=== PATIENT | male | born 1990 | race Caucasian/White ===

== ENCOUNTER 2023-12-24 02:17 | Emergency (ER) | payer BC, SELFPAY ==
--- NOTE | 2023-12-24 02:25 | ED.GENMED ---
History of Present Illness
<Surya Veras DO - Last Filed: 12/24/23 06:31>
General
Chief Complaint: Change Level of Consciousness
Source: patient
Exam Limitations: clinical condition
Time Seen by Provider: 12/24/23 02:19
Nursing documentation reviewed up to this point in time: agreed with
History of Present Illness
History of Present Illness:
33-year-old male dropped off by significant other for evaluation. Was walking into the emergency department and fell into the threshold. Did not hit his head during this fall. Patient states that he was originally coming to the emergency
department because he tripped over his cat and fell straight head and face on the ground. History is limited at this time. Patient admits to being diabetic. [id number] glucose was normal. Patient protecting his airway. Stroke alert called.
Dr. Jose A Benjamin called back immediately and advised that we do CT angio of the head and neck, and CT head. Patient straight to CAT scan.
Phy Exam
<Surya Veras DO - Last Filed: 12/24/23 06:31>
General Physical Exam
General Presentation: well appearing and no apparent distress
General Skin: warm and dry
General Habitus: normal
General Mental: alert
General Hydration: appears well hydrated
ENT Exam
ENT Exam: EOMI, pharynx normal, neck supple and normocephalic
Additional ENT: No septal hematoma
Eye Exam
Eye Exam: PERRL, cornea clear and conjunctiva normal
Cardiovascular Exam
Cardiovascular Exam: regular rate/rhythm, no edema, no murmur and normal peripheral pulses
Pulmonary Exam
Pulmonary Exam: lungs clear, no respiratory distress, no rales, no crackles, no rhonchi, no stridor, no wheezing and no cough
Gastrointestinal Exam
Gastrointestinal Exam: normal bowel sounds, non tender, soft, no organomegaly, no pulsatile mass and non distended
Neurological Exam
Neurological Exam: alert, oriented x3, no motor deficits and speech normal
Musculoskeletal Exam
Musculoskeletal Exam: full ROM and no edema
Skin Exam
Skin Exam: normal color, warm/dry, no rash and no petechia
Psychiatric Exam
Psychiatric Exam: normal mood/affect
Course
<Surya Veras, DO - Last Filed: 12/24/23 06:31>
Orders/Labs/Results
Orders:
Orders
12/24/23 02:19
CT Head & Neck Angio W/wo IV Urgent
Comment:
Reason For Exam: collapse with head injury
CT Head W/o Cont STROKE ALERT Urgent
Comment:
Reason For Exam: collapse with head injury
Bedside Glucose- Treatment ONCE
12/24/23 02:20
Electrocardiogram (*1) Stat
Reason for Study: Other
Other Reason for Exam: neuro symptoms
EKG- Treatment ONCE
12/24/23 02:23
Acetaminophen Urgent
Alcohol Urgent
Complete Blood Count/With Diff Urgent
Comprehensive Metabolic Panel Urgent
Erythrocyte Sed Rate Urgent
PTT Urgent
Prothrombin Time Urgent
Salicylate Urgent
12/24/23 02:58
Acetaminophen [Tylenol] 650 mg .ROUTE .STK-MED ONE
12/24/23 02:59
Acetaminophen [Tylenol] 650 mg PO NOW STA
12/24/23 05:29
Urinalysis Reflex To Culture Urgent
Date Specimen was Collected: 12/24/23
Time Specimen was Collected: 05:28
Urine Drug Abuse Screen Urgent
Date Specimen was Collected: 12/24/23
Time Specimen was Collected: 05:28
Abnormal Lab Results
12/24/23
02:23
WBC 11.1 H 10^3/uL
(4.8-10.8)
RBC 6.16 H 10^6/uL
(4.70-6.10)
MCV 72.1 L fL
(80.0-94.0)
MCH 23.7 L pg
(27.0-31.0)
MCHC 32.9 L g/dL
(33.0-37.0)
RDW 15.4 H %
(11.5-14.5)
Abs Immat Gran (auto) 0.2 H 10^3/uL
(0-0.05)
Absolute Lymphs (auto) 4.9 H 10^3/uL
(1.2-3.4)
Absolute Monos (auto) 1.1 H 10^3/uL
(0.1-0.6)
Immature Gran % 1.9 H %
(0-0.5)
Neutrophils % 40.1 L %
(42.2-75.2)
Monocytes % 10.1 H %
(1.7-9.3)
BUN 22 H mg/dl
(9-20)
Glucose 127 H mg/dl
(70-99)
ALT 121 H U/L
(0-50)
Salicylates < 1.0 L mg/dl
(2.0-20.0)
Acetaminophen < 10 L ug/ml
(10-30)
12/24/23 02:23
12/24/23 02:23
Vital Signs
Initial and Last Documented VS:
Initial Vital Signs
BP
154/91
12/24/23 02:37
Last Documented Vital Signs
Temp Pulse Resp BP Pulse Ox
97.8 F 75 11 126/74 97
12/24/23 02:48 12/24/23 05:30 12/24/23 05:30 12/24/23 05:00 12/24/23 05:30
<MADELINE Ryan - Last Filed: 12/31/23 22:37>
Orders/Labs/Results
Orders:
Orders
12/24/23 02:19
CT Head & Neck Angio W/wo IV Urgent
Comment:
Reason For Exam: collapse with head injury
CT Head W/o Cont STROKE ALERT Urgent
Comment:
Reason For Exam: collapse with head injury
Bedside Glucose- Treatment ONCE
12/24/23 02:20
Electrocardiogram (*1) Stat
Reason for Study: Other
Other Reason for Exam: neuro symptoms
EKG- Treatment ONCE
12/24/23 02:23
Acetaminophen Urgent
Alcohol Urgent
Complete Blood Count/With Diff Urgent
Comprehensive Metabolic Panel Urgent
Erythrocyte Sed Rate Urgent
PTT Urgent
Prothrombin Time Urgent
Salicylate Urgent
12/24/23 02:58
Acetaminophen [Tylenol] 650 mg .ROUTE .STK-MED ONE
12/24/23 02:59
Acetaminophen [Tylenol] 650 mg PO NOW STA
12/24/23 05:29
Urinalysis Reflex To Culture Urgent
Date Specimen was Collected: 12/24/23
Time Specimen was Collected: 05:28
Urine Drug Abuse Screen Urgent
Date Specimen was Collected: 12/24/23
Time Specimen was Collected: 05:28
Abnormal Lab Results
12/24/23
02:23
WBC 11.1 H 10^3/uL
(4.8-10.8)
RBC 6.16 H 10^6/uL
(4.70-6.10)
MCV 72.1 L fL
(80.0-94.0)
MCH 23.7 L pg
(27.0-31.0)
MCHC 32.9 L g/dL
(33.0-37.0)
RDW 15.4 H %
(11.5-14.5)
Abs Immat Gran (auto) 0.2 H 10^3/uL
(0-0.05)
Absolute Lymphs (auto) 4.9 H 10^3/uL
(1.2-3.4)
Absolute Monos (auto) 1.1 H 10^3/uL
(0.1-0.6)
Immature Gran % 1.9 H %
(0-0.5)
Neutrophils % 40.1 L %
(42.2-75.2)
Monocytes % 10.1 H %
(1.7-9.3)
BUN 22 H mg/dl
(9-20)
Glucose 127 H mg/dl
(70-99)
ALT 121 H U/L
(0-50)
Salicylates < 1.0 L mg/dl
(2.0-20.0)
Acetaminophen < 10 L ug/ml
(10-30)
12/24/23 02:23
12/24/23 02:23
Vital Signs
Initial and Last Documented VS:
Initial Vital Signs
BP
154/91
12/24/23 02:37
Last Documented Vital Signs
Temp Pulse Resp BP Pulse Ox
97.8 F 75 11 126/74 97
12/24/23 02:48 12/24/23 05:30 12/24/23 05:30 12/24/23 05:00 12/24/23 05:30
<MADELINE Ryan - Last Filed: 12/31/23 22:37>
*Critical Care Note
Total Time (30-74mins, 75-104mins- exclusive of procedures): Not Applicable
<Surya Veras DO - Last Filed: 12/24/23 06:31>
Update Note
Update Note:
Comparison July 31, [address]23
CT head without contrast
CTA head and neck with IV contrast
IMPRESSION:
Non-contrast Head:
No acute intracranial abnormality. No acute territorial infarct, hemorrhage, mass effect, or midline shift. Retrocerebellar arachnoid cyst.
CTA Neck:
No occlusion, stenosis, or dissection.
CTA Head:
The [place] of [place] is patent without aneurysm, stenosis, or occlusion.
12/24/2023 0601 AM: Patient was able ambulate around the department with no apparent distress. Patient will be will be discharged to home. He is being discharged in much improved condition. Patient has no complaints at this time. He is
neurologically intact.
ED Attending Note
<Surya Veras DO - Last Filed: 12/24/23 06:31>
ED Attending Note
Patient seen and examined by attending physician: Yes
-
Portions of this chart may have been created with voice recognition software.� Occasional wrong word or��sound alike� substitutions may have occurred due to the inherent limitations of voice recognition software.
Discharge Plan
Departure
Patient Disposition: Home (Routine Discharge)
Date of Disposition: 12/24/23
Time of Disposition: 06:18
Patient with high blood pressure during this ER visit?: Yes
Condition: Good
Covid-19: Suspected COVID-19
Discharge Problem:
Nasal pain, Fall against object, Contusion of nose
Discharge Problem:
(Ruled Out): Fall
Prescriptions:
No Action
metformin 500 mg Tablet
500 mg PO BID@0800,1700 Qty: 60 0RF
famotidine 20 mg Tablet
20 mg PO BID Qty: 0 0RF
Referrals:
[facility] [Outside]
[facility] [Outside]
UNKNOWN - PT NOT,INTERVIEWE [Family Provider] -
Activity Restrictions/Additional Instructions:
It was a pleasure meeting you and taking part in your care. We hope for your continued healing and wellness.
Please read discharge instructions in their entirety. However, they are for general education and may not describe your exact diagnosis at discharge. Information on your ER visit and medical conditions were discussed with you along with appropriate
follow up information...
If indicated, please take your medications as instructed and indicated on discharge paperwork.
Please schedule a follow up appointment as directed. Call to schedule an appointment
Please return to the emergency department with ANY change in, persisting, or worsening of symptoms. If any of your symptoms do not improve, or persist, or become more severe within 6-12 hours, please return to the emergency department for further
care.
Please return to the emergency department if you develop a headache, neck pain/stiffness, fever greater than 100.4F, chest pain, shortness of breath, persistent nausea, vomiting, slurred speech, difficulty walking, numbness/tingling, weakness, signs
of infection or any other symptoms that are worrisome to you.
If you have any questions or concerns please do not hesitate to call the Hospital at or E-mail me directly at [email or web address]
Interventions
Interventions:
*Risk Screen - Suicide Last Done: 12/24/23 02:38
*General Assessment Last Done: 12/24/23 02:37
*Neglect/Abuse Screening Last Done: 12/24/23 02:38
ED- Fall Risk Assessment Last Done: 12/24/23 02:38
*ED COVID-19 Vaccine History Last Done: 12/24/23 02:37
*Nursing Disposition Last Done: 12/24/23 06:52
ED- Cardiac Assessment Last Done: 12/24/23 02:38
ED- Neurological Assessment Last Done: 12/24/23 02:38
ED-Psychological Assessment Last Done: 12/24/23 02:38
ED- Pulmonary Assessment Last Done: 12/24/23 02:38
Discharge Date and Time
Discharge Date/Time: 12/24/23 06:52
Print Language: GUYANESE
[2023-12-24 02:30] LABS: % Basophils 0.8 % (0-2); % Eosinophils 2.9 % (0-6); % Immature Granulocytes 1.9 % (0-0.5); % Lymphocytes 44.2 % (20.5-51.1); % Monocytes 10.1 % (1.7-9.3); % Neutrophils 40.1 % (42.2-75.2); Absolute Basophils 0.1 10^3/uL (0-0.2); Absolute Eosinophils 0.3 10^3/uL (0-0.7); Absolute Immature Granulocytes 0.2 10^3/uL (0-0.05); Absolute Lymphocytes 4.9 10^3/uL (1.2-3.4); Absolute Monocytes 1.1 10^3/uL (0.1-0.6); Absolute Neutrophils 4.5 10^3/uL (1.4-6.5); Hematocrit 44.4 % (39.0-52.0); Hemoglobin 14.6 g/dL (13.0-18.0); Mean Corp Hgb Conc. 32.9 g/dL (33.0-37.0); Mean Corpuscular Hgb 23.7 pg (27.0-31.0); Mean Corpuscular Volume 72.1 fL (80.0-94.0); Mean Platelet Volume 9.2 fL (7.4-10.4); Nucleated Red Blood Cells % 0 % (-); Platelet Count 314 10^3/uL (130-400); Red Blood Cell Count 6.16 10^6/uL (4.70-6.10); Red Cell Dist. Width 15.4 % (11.5-14.5); White Blood Cell Count 11.1 10^3/uL (4.8-10.8)
[2023-12-24 02:36] VITALS: BMI 39.3
[2023-12-24 02:37] VITALS: BP 154/91
[2023-12-24 02:41] LABS: APTT 28.6 Sec (23.4-35.0); INR 0.99; PT 13.1 Sec (11.4-14.6)
[2023-12-24 02:53] LABS: ALT (SGPT) 121 U/L (0-50); AST (SGOT) 51 U/L (17-59); Albumin 4.6 g/dl (3.5-5.0); Alkaline Phosphatase 88 U/L (38-126); Blood Urea Nitrogen 22 mg/dl (9-20); Calcium 9.9 mg/dl (8.4-10.2); Carbon Dioxide 27 mmol/L (22-30); Chloride 103 mmol/L (98-107); Estimated Creatinine Clearance > 125 ml/min; Glucose 127 mg/dl (70-99); Potassium 4.3 mmol/L (3.5-5.1); Salicylate < 1.0 mg/dl (2.0-20.0); Total Bilirubin 0.4 mg/dl (0.2-1.3); Total Protein 7.5 g/dl (6.3-8.2); eGFR > 60.00
[2023-12-24 02:56] LABS: Erythrocyte Sed Rate 8 mm/hour (0-20)
[2023-12-24 03:00] VITALS: BP 142/97
[2023-12-24] MEDS: TYLENOL 650 MG PO (03:00)
[2023-12-24 03:07] LABS: Alcohol None Detected
[2023-12-24 03:15] LABS: Acetaminophen < 10 ug/ml (10-30); Sodium 137 mmol/L (135-145)
[2023-12-24 04:00] VITALS: BP 114/62
[2023-12-24 05:00] VITALS: BP 126/74
[2023-12-24 05:43] LABS: Urine Albumin Negative (Neg - Trace); Urine Bilirubin Negative (Negative); Urine Character Clear (Clear); Urine Color Yellow; Urine Glucose Negative (Negative); Urine Ketone Negative (Negative); Urine Leukocyte Negative (Negative); Urine Nitrite Negative (Negative); Urine Occult Blood Negative (Negative); Urine Specific Gravity 1.015 (<1.030); Urine Urobilinogen Negative (Neg - 1+)
[2023-12-24 05:50] LABS: Amphetamines Negative (Negative); Barbiturates Negative (Negative); Benzodiazepines Negative (Negative); Buprenorphine Negative (Negative); Cocaine Negative (Negative); Marijuana Negative (Negative); Methadone Negative (Negative); Methamphetamines Negative (Negative); Opiates Negative (Negative); Phencyclidine Negative (Negative); Tricyclic Antidepressants Negative (Negative)
== END 2023-12-24 06:52 | disposition home or self-care (01) ==
LOC: EMR 02:17
PROVIDERS: EMERGENCY PHYSICIAN Student in an Organized Health Care Education/Training Program
DX: S00.33XA Contusion of nose, initial encounter (principal); W19.XXXA Unspecified fall, initial encounter; R03.0 Elevated blood-pressure reading, without diagnosis of hypertension
CPT/HCPCS: 99285; 70450; 70496; 70498; 80053; 80143; 80179; 80306; 81003; 82077; 85025; 85610; 85652; 85730; 93005; Q9967

== ENCOUNTER 2024-06-25 03:10 | Emergency (ER) | payer BC, SELFPAY ==
[2024-06-25 03:12] VITALS: BP 160/102
--- NOTE | 2024-06-25 05:18 | ED.GENMED ---
History of Present Illness
<MADELINE Beth - Last Filed: 06/25/24 05:59>
General
Chief Complaint: Skin Problem
Source: patient
Exam Limitations: none
Time Seen by Provider: 06/25/24 05:09
Nursing documentation reviewed up to this point in time: agreed with
History of Present Illness
History of Present Illness:
Patient is a 33yo M w/ PMH of DM who presents to ED w/ pain & swelling behind R ear into neck & jaw x 3 days. Reports it has been on/off. Medication (unknown NSAID) relieves symptoms but they come back once med wears off. States he cannot fully open
or close mouth due to pain. Also hurts to move neck bu neck not in pain currently. Admits to R ear fullness. Denies fever, chills, PAGAN, decreased hearing, congestion, rhinorrhea, cough, or ear discharge. Took an old dose of penicillin. Denies any
recent trauma to ear, head, face.
Review of Systems
<MADELINE Beth - Last Filed: 06/25/24 05:59>
Review of Systems
Constitutional: Denies fever, fatigue or chills
EENT: Denies sore throat or runny nose
Respiratory: Denies cough or trouble breathing
Cardiac: Denies chest pain or palpitations
ABD/GI: Denies abdominal pain, nausea, vomiting, diarrhea or constipated
: Denies dysuria
Musculoskeletal: Reports edema and neck pain; Denies muscle pain
Skin: Denies itching or rash
Neurological: Denies dizzy or headache
Hematologic/Lymphatic: Reports swollen glands
Phy Exam
<MADELINE Beth - Last Filed: 06/25/24 05:59>
General Physical Exam
General Presentation: severe distress
General age: appears stated age
General Skin: warm and dry
General Habitus: obese
General Mental: tearful
ENT Exam
ENT Exam: TM's normal, pharynx normal, neck supple, normocephalic and other (some swelling of R ear canal; swelling of R submandibular region )
Cardiovascular Exam
Cardiovascular Exam: regular rate/rhythm, no edema, no gallop and no murmur
Pulmonary Exam
Pulmonary Exam: lungs clear, no respiratory distress, no rales, no crackles, no rhonchi and no wheezing
Gastrointestinal Exam
Gastrointestinal Exam: normal bowel sounds, non tender, soft, no organomegaly and non distended
Neurological Exam
Neurological Exam: alert, oriented x3 and speech normal
Course
<MADELINE Beth - Last Filed: 06/25/24 05:59>
Orders/Labs/Results
Orders:
Orders
06/25/24 05:28
Amoxicillin 875 mg/Clav 125 mg [Augmentin 875 mg/125 mg] 1 tablet PO NOW STA
Ketorolac [Toradol] 60 mg IM NOW STA
Neomycin/Polymyxin/Hc [Cortisporin Otic Suspension] See Dose Instructions OTIC NOW STA
Vital Signs
Initial and Last Documented VS:
Initial Vital Signs
Temp Pulse Resp BP Pulse Ox
97.7 F 78 22 160/102 98
06/25/24 03:12 06/25/24 03:12 06/25/24 03:12 06/25/24 03:12 06/25/24 03:12
Last Documented Vital Signs
Temp Pulse Resp BP Pulse Ox
97.7 F 78 22 160/102 98
06/25/24 03:12 06/25/24 03:12 06/25/24 03:12 06/25/24 03:12 06/25/24 03:12
<Ammy Melgoza DO - Last Filed: 06/25/24 05:39>
Orders/Labs/Results
Orders:
Orders
06/25/24 05:28
Amoxicillin 875 mg/Clav 125 mg [Augmentin 875 mg/125 mg] 1 tablet PO NOW STA
Ketorolac [Toradol] 60 mg IM NOW STA
Neomycin/Polymyxin/Hc [Cortisporin Otic Suspension] See Dose Instructions OTIC NOW STA
Vital Signs
Initial and Last Documented VS:
Initial Vital Signs
Temp Pulse Resp BP Pulse Ox
97.7 F 78 22 160/102 98
06/25/24 03:12 06/25/24 03:12 06/25/24 03:12 06/25/24 03:12 06/25/24 03:12
Last Documented Vital Signs
Temp Pulse Resp BP Pulse Ox
97.7 F 78 22 160/102 98
06/25/24 03:12 06/25/24 03:12 06/25/24 03:12 06/25/24 03:12 06/25/24 03:12
<Ammy Melgoza DO - Last Filed: 06/25/24 05:39>
*Pulse Oximetry
Patient hypoxic: no
*Critical Care Note
Total Time (30-74mins, 75-104mins- exclusive of procedures): Not Applicable
ED Attending Note
<MADELINE Beth - Last Filed: 06/25/24 05:59>
-
Portions of this chart may have been created with voice recognition software.� Occasional wrong word or��sound alike� substitutions may have occurred due to the inherent limitations of voice recognition software.
<Ammy Melgoza DO - Last Filed: 06/25/24 05:39>
ED Attending Note
Patient seen and examined by attending physician: Yes
I performed the substantive portion of visit, reviewed & personally made and approve the management plan that is documented in note by myself or CONSTANTIN.: Yes
ED Attending Note:
Is a 33-year-old gentleman with history of dto-vvdvgkj-qjuloztoe diabetes, reports well-controlled with metformin. He presents with 3 to 4-day history of right posterior jaw, inferior ear pain that has been persistent, temporized with ibuprofen and
temporized with an old prescription of penicillin. Pain is worse with opening his mouth, worse with chewing with occasional episodes of significant swelling right posterior jaw region while eating. He has not had a fever nor chills, no sore
throat, no difficulty swallowing, no headache. Pain is worsened tonight along with increased pain to his right ear. He has been attempting to clean his ears, flushes ears thinking that this was an issue and believes he may have made matters worse.
No drainage from his ears, no bleeding. No muffling nor decreased hearing.
GENERAL: 33-year-old obese gentleman appears his stated age, awake and alert, pleasant, appears in no acute distress. Afebrile. Moderately hypertensive.
EYE: pupils equal and reactive. anicteric
NECK: Supple, no posterior tenderness. No meningismus, no significant adenopathy.
ENT: posterior pharynx is clear, oral mucosa is moist. Teeth are intact and nontender. No TMJ tenderness. There is moderate tenderness along a mildly to moderately boggy right parotid gland, moderate right ear tenderness with tugging on the ear.
Right external ear canal has mild whitish debris, mildly stenosed. TM is visible and is clear. Left TM and canal are clear. Nares are patent without rhinorrhea.
CARDIAC: Regular rate and rhythm. no murmur.
LUNGS: Clear breath sounds bilaterally, no acute respiratory distress, no wheezes/rales/rhonchi
ABDOMEN: Soft, nondistended, without focal tenderness
NEUROLOGICAL: Alert and oriented x3, no focal neuro deficits. Gait is viera and steady.
SKIN: Warm and dry, normal color, skin intact. No rash.
MUSCULOSKELETAL: No C/C/E. peripheral pulses are full and equal b/l. No palpable tenderness.
PSYCH: Normal and appropriate interaction
History and exam concerning for right otitis externa as well as right parotitis versus local adenitis.
Will initiate a course of Augmentin, continue ibuprofen and will add Cortisporin otic to right ear external otitis.
Recommend prompt follow-up with PCP and will refer to ENT as well especially if right parotid pain/inflammation persists.
Discharge Plan
Departure
Patient Disposition: Home (Routine Discharge)
Date of Disposition: 06/25/24
Time of Disposition: 05:35
Patient with high blood pressure during this ER visit?: Yes
Condition: Good
Discharge Problem:
Otitis externa of right ear, right parotidis
Instructions: Outer Ear Infection ED, Parotid Gland Infection
Prescriptions:
New
amoxicillin-pot clavulanate 875-125 mg tablet
1 tab PO BID Qty: 20 0RF
ibuprofen 800 mg tablet
800 mg PO QIDPRN PRN (Reason: pain, fever) Qty: 30 0RF
Cortisporin-TC 3.3-3-10-0.5 mg/mL drops,suspension
4 drp otic (ear) QID Qty: 10 0RF
No Action
metformin 500 mg Tablet
500 mg PO BID@0800,1700 Qty: 60 0RF
famotidine 20 mg Tablet
20 mg PO BID Qty: 0 0RF
Referrals:
NONE,* [Family Provider] - Call in 1-3 days for appt
Constantine Le MD [Active] - Call in 1-3 days for appt
Interventions
Interventions:
*Risk Screen - Suicide Last Done: 06/25/24 03:12
*General Assessment Last Done: 06/25/24 03:36
*Neglect/Abuse Screening Last Done: 06/25/24 03:12
ED- Fall Risk Assessment Last Done: 06/25/24 03:36
*ED COVID-19 Vaccine History Last Done: 06/25/24 03:36
Discharge Date and Time
Print Language: BELIZEAN
[2024-06-25] MEDS: AUGMENTIN 875 MG/125 MG 1 TABLET PO (05:42)
[2024-06-25] MEDS: TORADOL 60 MG IM (05:44)
[2024-06-25] MEDS: CORTISPORIN OTIC SUSPENSION 4 DROP OTIC (05:44)
[2024-06-25 06:00] VITALS: BP 107/58
== END 2024-06-25 06:00 | disposition home or self-care (01) ==
LOC: EMR 03:10
PROVIDERS: EMERGENCY PHYSICIAN Emergency Medicine
DX: H60.91 Unspecified otitis externa, right ear (principal); K11.20 Sialoadenitis, unspecified; E11.9 Type 2 diabetes mellitus without complications
CPT/HCPCS: 96372; 99284

== ENCOUNTER 2025-03-18 05:49 | Emergency (ER) | payer BC, SELFPAY ==
[2025-03-18 05:55] VITALS: BP 144/92
--- NOTE | 2025-03-18 07:25 | ED.GENMED ---
History of Present Illness
General
Chief Complaint: Musculo-Skeletal Complaint
Source: patient
Time Seen by Provider: 03/18/25 07:14
History of Present Illness
History of Present Illness:
34-year-old male presents to the emergency room complaining of right shoulder pain. Patient began having some right shoulder pain a few days ago after moving some furniture. The pain was moderate but seem to get better. He went on a fishing trip
yesterday and after returning noted the right shoulder pain to be much more significant. Patient now has significant pain with minimal movement of the right shoulder. In fact he is tearful with my exam. Patient is left-hand dominant.
Phy Exam
Physical Exam
Physical Exam:
General: Awake, Alert, Oriented X3. Appears to be in significant right shoulder pain with movement
Vitals: unremarkable
Head: Atraumatic
Eyes: Pupils equal, EOMI
Throat: Airway intact, no exudates
Neck: Trachea midline
Lungs: Clear and equal b/l
Heart: Regular rate, no murmurs
Neuro: Nonfocal
Skin: Warm, dry, no rash
Extremities: pulses equal b/l, no edema. No apparent erythema or swelling noted right shoulder. Patient indicates pain with range of motion particularly in the anterior and lateral humeral head. With palpation I am able to isolate significant
tenderness over what appears to be at the bicep tendon insertion.
Course
Orders/Labs/Results
Orders:
Orders
03/18/25 05:58
CR Humerus - Right Min 2 View* Urgent
Comment:
Reason For Exam: pain, trouble lifting
03/18/25 07:21
Acetaminophen [Tylenol] 1,000 mg PO NOW STA
Ketorolac [Toradol] 30 mg IM NOW STA
Vital Signs
Initial and Last Documented VS:
Initial Vital Signs
Temp Pulse Resp BP Pulse Ox
97.5 F 72 18 144/92 98
03/18/25 05:55 03/18/25 05:55 03/18/25 05:55 03/18/25 05:55 03/18/25 05:55
Last Documented Vital Signs
Temp Pulse Resp BP Pulse Ox
97.5 F 72 18 144/92 98
03/18/25 05:55 03/18/25 05:55 03/18/25 05:55 03/18/25 05:55 03/18/25 07:28
MDM/Problems Addressed
Differential Diagnosis Includes:
Tendinitis, bicep tear, other rotator cuff tendinitis
MDM/Problems Addressed:
Patient presents with pain in the right shoulder and upper arm. Physical exam consistent with tendinitis. X-ray shows no acute abnormality. Will treat with NSAIDs, Ortho follow-up. Sling given to use when he is walking just to add some support
but patient instructed not to use it more than occasionally.
*Pulse Oximetry
SaO2: 98
Oxygen Mode of Delivery: Room air
Patient hypoxic: no
*Critical Care Note
Total Time (30-74mins, 75-104mins- exclusive of procedures): Not Applicable
ED Attending Note
-
Portions of this chart may have been created with voice recognition software.� Occasional wrong word or��sound alike� substitutions may have occurred due to the inherent limitations of voice recognition software.
Discharge Plan
Departure
Patient Disposition: Home (Routine Discharge)
Date of Disposition: 03/18/25
Time of Disposition: 08:07
Patient with high blood pressure during this ER visit?: Yes
Condition: Good
Discharge Problem:
Tendonitis of shoulder, right
Instructions: Biceps tendinopathy
Prescriptions:
No Action
metformin 500 mg Tablet
500 mg PO BID@0800,1700 Qty: 60 0RF
famotidine 20 mg Tablet
20 mg PO BID Qty: 0 0RF
amoxicillin-pot clavulanate 875-125 mg tablet
1 tab PO BID Qty: 20 0RF
ibuprofen 800 mg tablet
800 mg PO QIDPRN PRN (Reason: pain, fever) Qty: 30 0RF
Cortisporin-TC 3.3-3-10-0.5 mg/mL drops,suspension
4 drp otic (ear) QID Qty: 10 0RF
Referrals:
Ariana Pinto CRNP [Family Provider, Internal Medicine]
Ruben Gaines MD [Active, Orthopedics]
Activity Restrictions/Additional Instructions:
I believe your right shoulder pain is due to tendinitis probably from your bicep tendon. You can take 600 mg of ibuprofen and 1000 mg of Tylenol every 6 hours to help with the pain. We gave you a sling which you should use sparingly.
Interventions
Interventions:
*Risk Screen - Suicide Last Done: 03/18/25 05:55
*General Assessment Last Done: 03/18/25 05:55
*Neglect/Abuse Screening Last Done: 03/18/25 05:55
Discharge Date and Time
Print Language: [id number]
[2025-03-18] MEDS: TYLENOL 1000 MG PO (07:32)
[2025-03-18] MEDS: TORADOL 30 MG IM (07:32)
== END 2025-03-18 08:10 | disposition home or self-care (01) ==
LOC: EMR 05:49
PROVIDERS: EMERGENCY PHYSICIAN Emergency Medicine; FAMILY PHYSICIAN Nurse Practitioner Family
DX: M75.91 Shoulder lesion, unspecified, right shoulder (principal)
CPT/HCPCS: 99283; 96372; 73060

== ENCOUNTER → 2025-06-15 06:26 | Outpatient (REF) | payer BC, SELFPAY | LOC: HWRAD 06:26 | PROVIDERS: ATTENDING PHYSICIAN Nurse Practitioner Family | DX: R79.89 Other specified abnormal findings of blood chemistry (principal) | CPT/HCPCS: 76700 ==